=== PATIENT | male | born 1950 | race Caucasian/White ===

== ENCOUNTER → 2016-11-19 | Outpatient (CLI) | payer MEDICARE ==
[2016-11-19 14:56] LABS: HEMOGLOBIN 14.3 g/dL (14.1-18.0); LYMPH # 2.5 K/mm3 (0.7-4.5); LYMPH % 36.4 % (10-50)
[2016-11-19 15:15] LABS: BUN 14 mg/dL (7-18)
[2016-11-19 15:19] LABS: GFR (ESTIMATED) 51 ML/MIN (>60)
--- NOTE | 2016-11-19 16:21 | RADIOLOGY REPORT PS360 ---
CHEST(2 VIEWS-NOT PORTABLE) Ordering physician: Balwinder Rodriguez MD Age: 66 years Male INDICATION: Chest pain short of breath.CHEST PAIN, SOB PROCEDURE: CHEST(2 VIEWS-NOT PORTABLE) Findings Previous chest film 11/17/2008 used as comparison We again see hyperexpansion suggestive COPD. Flattening diaphragm the lateral view. Elongated appearance the lungs. Heart normal size. Rufina and mediastinal structures satisfactory. No focal pneumonia. No active disease. No pleural effusion. No chest wall lesion nor pleural lesion. Perhaps some minor levocurvature of the lower T-spine IMPRESSION ----- . stable chest with Nothing definite acute. Hyperexpansion suggestive of COPD
== END ==
LOC: LAB 14:46
PROVIDERS: Internal Medicine
DX: R07.9 Chest pain, unspecified (principal); R06.02 Shortness of breath

== ENCOUNTER → 2017-03-16 | Outpatient (CLI) | payer MEDICARE | LOC: UTC.OUT 10:12 | DX: Z02.4 Encounter for examination for driving license (principal) ==

== ENCOUNTER → 2017-05-13 | Outpatient (CLI) | payer MEDICARE ==
--- NOTE | 2017-05-14 10:57 | RADIOLOGY REPORT PS360 ---
MRI-L-SPINE W/O, MRI-3D RENDERING/MYELOGRAM HISTORY: Low back pain with left leg pain and numbness and tingling LUMBAGO W/SCIATICA ORDERING PHYSICIAN: Balwinder Rodriguez MD PATIENT AGE: 67 years COMPARISON: None TECHNIQUE: Standard multiplanar multiecho sequences are performed without contrast. 3-D MIP and myelographic images are also rendered and reviewed FINDINGS: There is normal alignment. The spinal cord ends at the L1 level. L1-L2: Unremarkable. L2-L3: Mild facet and ligamentum flavum hypertrophy. L3-L4: There is mild concentric bulging disc along with facet and ligamentum flavum hypertrophy causing bilateral lateral recess narrowing greater on the right and minimal bilateral foraminal narrowing. There is 2 mm anterolisthesis of L3. L4-L5: Mild bulging disc along with facet and ligamentum flavum hypertrophy with bilateral lateral recess narrowing and mild bilateral foraminal narrowing. L5-S1: Severe degenerative disc disease with loss of the disc space and type I endplate changes along the inferior endplate of L5. There is endplate hypertrophy with moderate left-sided foraminal narrowing and left lateral recess narrowing. No disc herniation or canal stenosis. IMPRESSION: 1 Lumbar spondylosis with facet and ligamentum flavum hypertrophy. No canal stenosis or disc herniation. 2. There is mild concentric bulging L3-L4 disc along with facet and ligamentum flavum hypertrophy causing bilateral lateral recess narrowing greater on the right and minimal bilateral foraminal narrowing. There is 2 mm anterolisthesis of L3. 3. Mild bulging disc L4-5 along with facet and ligamentum flavum hypertrophy with bilateral lateral recess narrowing and mild bilateral foraminal narrowing. 4. Severe degenerative disc disease L5-S1 with loss of the disc space and type I endplate changes along the inferior endplate of L5. There is endplate hypertrophy with moderate left-sided foraminal narrowing and left lateral recess narrowing.
== END ==
LOC: RAD 14:25
DX: M54.42 Lumbago with sciatica, left side (principal)